=== PATIENT | male | born 1955 | race Hispanic/Latino ===

== ENCOUNTER 2020-08-23 11:42 | Inpatient (IN) | payer MEDICARE ==
[~2020-08-23] VITALS: Ht 165.1 cm; Wt 49.9 kg
[2020-08-23 13:15] LABS: BASOPHILS % (AUTO) 0.3 % (0.0-5.0); EOSINOPHILS % (AUTO) 0.2 % (0.0-8.0); LYMPHOCYTES % (AUTO) 14.7 % (21.0-51.0); MEAN CORPUSCULAR HEMOGLOBIN 29.1 pg (27.0-33.0); MEAN CORPUSCULAR HGB CONC 33.5 g/dL (32.0-36.0); MONOCYTES % (AUTO) 8.9 % (3.0-13.0); NEUTROPHILS % (AUTO) 75.5 % (40.0-77.0); PLATELET COUNT (AUTO) 387 K/uL (130-400); WHITE BLOOD COUNT (AUTO) 12.1 K/uL (4.8-10.8)
[2020-08-23 13:21] LABS: PROTHROMBIN TIME 10.9 SEC (9.6-11.6)
[2020-08-23 13:22] LABS: PARTIAL THROMBOPLASTIN TIME 26.9 SEC (26.3-35.5)
[2020-08-23 13:33] LABS: ALBUMIN 3.2 g/dL (3.5-5.0); BILIRUBIN,TOTAL 0.4 mg/dL (0.2-1.0); TOTAL PROTEIN, SERUM 8.5 g/dL (6.0-8.3)
[2020-08-23] MEDS ORDERED: VANCOMYCIN 1GM+NS 250ML 250 ML IV ONE (14:02)
[2020-08-23] MEDS ORDERED: ZOSYN 3.375GM+NS 50ML 50 ML IV ONE (14:02)
[2020-08-23] MEDS ORDERED: HYDROCODONE/ACETAMINOPHEN 10/325 MG TAB ONE (14:02)
[2020-08-23 15:03] LABS: HEMOGLOBIN A1C 6.3 % (4.0-6.0)
[2020-08-23] MEDS ORDERED: ASPIRIN 81MG TAB.CHEW ONE ×2 (18:28→20:40)
[2020-08-23] MEDS ORDERED: ASPIRIN 81MG TAB.CHEW PO SCH (18:55)
[2020-08-23 21:35] VITALS: BP 143/82
[2020-08-23 23:37] VITALS: BP 128/66
[2020-08-23] MEDS: ZOSYN 3.375GM+NS 50ML 50 ML IV SCH (23:49)
[2020-08-24] MEDS ORDERED: SITA1TAB2 PO (00:53)
[2020-08-24] MEDS ORDERED: AMLO1TAB12 PO (00:53)
[2020-08-24 03:53] VITALS: BP 135/83
[2020-08-24] MEDS: ZOSYN 3.375GM+NS 50ML 50 ML IV SCH ×3 (06:44→21:43)
[2020-08-24 06:55] LABS: BASOPHILS % (AUTO) 0.4 % (0.0-5.0); EOSINOPHILS % (AUTO) 1.1 % (0.0-8.0); HEMATOCRIT 40.4 % (42-54); LYMPHOCYTES % (AUTO) 17.3 % (21.0-51.0); MEAN CORPUSCULAR HEMOGLOBIN 28.4 pg (27.0-33.0); MEAN CORPUSCULAR HGB CONC 32.4 g/dL (32.0-36.0); MEAN CORPUSCULAR VOLUME 87.4 fL (79-99); MONOCYTES % (AUTO) 11.7 % (3.0-13.0); NEUTROPHILS % (AUTO) 69.2 % (40.0-77.0); PLATELET COUNT (AUTO) 368 K/uL (130-400); RED BLOOD CELL COUNT(AUTO) 4.62 MIL/uL (4.50-6.20); RED CELL DISTRIBUTION WIDTH 12.8 % (11.0-15.5); WHITE BLOOD COUNT (AUTO) 9.9 K/uL (4.8-10.8)
[2020-08-24 07:08] LABS: POTASSIUM 3.8 mmol/L (3.5-5.1)
[2020-08-24] MEDS: LOSARTAN 100 MG TABLET PO SCH (07:45)
[2020-08-24] MEDS: AMLODIPINE BESYLATE 5 MG TAB PO SCH (07:45)
[2020-08-24] MEDS: ENOXAPARIN SODIUM 30 MG/0.3 ML SQ SCH (07:45)
[2020-08-24] MEDS: ASPIRIN 81MG TAB.CHEW PO SCH (07:45)
[2020-08-24 08:25] VITALS: BP 141/80
[2020-08-24] MEDS: INSULIN HUMULIN R 100 UNIT/ML 3ML SQ SCH ×3 (11:30→20:45)
[2020-08-24 11:53] VITALS: BP 134/80
[2020-08-24 13:52] LABS: CHOLESTEROL 168 mg/dL (<200); HDL CHOLESTEROL 50 mg/dL (29-71); LDL DIRECT 109 mg/dL (0-99); TRIGLYCERIDES 49 mg/dL (30-200)
[2020-08-24 16:30] VITALS: BP 125/80
[2020-08-24 20:15] VITALS: BP 130/73
[2020-08-24 23:31] VITALS: BP 123/70
[2020-08-25 04:04] VITALS: BP 135/78
[2020-08-25] MEDS: ZOSYN 3.375GM+NS 50ML 50 ML IV SCH ×3 (05:27→21:04)
[2020-08-25 05:29] LABS: APPEARANCE,URINE Clear (CLEAR); BILIRUBIN,URINE Negative (NEGATIVE); COLOR,URINE Yellow (YELLOW); GLUCOSE, URINE (UA) Negative (NEGATIVE); KETONES,URINE Negative (NEGATIVE); LEUKOCYTE ESTERASE ,URINE Negative (NEGATIVE); NITRATE,URINE Negative (NEGATIVE); OCCULT BLOOD,URINE Negative (NEGATIVE); PROTEIN,URINE POS 1+ mg/dL (NEGATIVE)
[2020-08-25 05:53] LABS: BACTERIA,URINE Few /HPF (None Seen); RBC,URINE 0-1 /HPF (0-1); SQUAMOUS EPITHELIAL CELL,UR 0-2 /HPF (0-2); URIC ACID CRYSTALS,URINE Few /LPF (None Seen); WBC,URINE 0-1 /HPF (0-1)
[2020-08-25] MEDS: INSULIN HUMULIN R 100 UNIT/ML 3ML SQ SCH ×4 (06:04→20:54)
[2020-08-25 06:06] LABS: BASOPHILS % (AUTO) 0.4 % (0.0-5.0); EOSINOPHILS % (AUTO) 3.1 % (0.0-8.0); HEMATOCRIT 40.5 % (42-54); MEAN CORPUSCULAR HEMOGLOBIN 28.4 pg (27.0-33.0); MEAN CORPUSCULAR HGB CONC 32.6 g/dL (32.0-36.0); MEAN CORPUSCULAR VOLUME 87.3 fL (79-99); MONOCYTES % (AUTO) 8.8 % (3.0-13.0); NEUTROPHILS % (AUTO) 71.3 % (40.0-77.0); PLATELET COUNT (AUTO) 379 K/uL (130-400); RED BLOOD CELL COUNT(AUTO) 4.64 MIL/uL (4.50-6.20); RED CELL DISTRIBUTION WIDTH 12.7 % (11.0-15.5); WHITE BLOOD COUNT (AUTO) 10.5 K/uL (4.8-10.8)
[2020-08-25 06:18] LABS: CREATININE 0.9 mg/dL (0.5-1.5); POTASSIUM 3.5 mmol/L (3.5-5.1)
[2020-08-25 06:47] VITALS: BP 125/71
[2020-08-25] MEDS: ASPIRIN 81MG TAB.CHEW PO SCH ×2 (07:13→12:40)
[2020-08-25] MEDS: ENOXAPARIN SODIUM 30 MG/0.3 ML SQ SCH ×2 (07:13→12:40)
[2020-08-25] MEDS: LOSARTAN 100 MG TABLET PO SCH (07:17)
[2020-08-25] MEDS: AMLODIPINE BESYLATE 5 MG TAB PO SCH (07:17)
[2020-08-25 10:59] VITALS: BP 137/79
[2020-08-25] MEDS ORDERED: IOHEXOL-350 50ML VIAL IV ONE (12:10)
[2020-08-25] MEDS ORDERED: IOHEXOL 350 MG/ML 100ML INFUS..BTL IV ONE (12:10)
[2020-08-25 15:56] VITALS: BP 132/72
[2020-08-25] MEDS: ATORVASTATIN CALCIUM 20 MG TABLET PO SCH (21:05)
[2020-08-25 21:26] VITALS: BP 132/72
[2020-08-26] VITALS (7 sets, daily range): BP systolic 111–139; BP diastolic 64–80
[2020-08-26 04:06] LABS: BASOPHILS % (AUTO) 0.3 % (0.0-5.0); EOSINOPHILS % (AUTO) 4.8 % (0.0-8.0); HEMATOCRIT 38.7 % (42-54); LYMPHOCYTES % (AUTO) 16.9 % (21.0-51.0); MEAN CORPUSCULAR HEMOGLOBIN 29.2 pg (27.0-33.0); MEAN CORPUSCULAR HGB CONC 33.3 g/dL (32.0-36.0); MEAN CORPUSCULAR VOLUME 87.6 fL (79-99); MONOCYTES % (AUTO) 9.4 % (3.0-13.0); NEUTROPHILS % (AUTO) 68.2 % (40.0-77.0); PLATELET COUNT (AUTO) 353 K/uL (130-400); RED BLOOD CELL COUNT(AUTO) 4.42 MIL/uL (4.50-6.20); RED CELL DISTRIBUTION WIDTH 12.7 % (11.0-15.5); WHITE BLOOD COUNT (AUTO) 10.3 K/uL (4.8-10.8)
[2020-08-26 04:16] LABS: CREATININE 0.9 mg/dL (0.5-1.5); POTASSIUM 3.5 mmol/L (3.5-5.1)
[2020-08-26] MEDS: ZOSYN 3.375GM+NS 50ML 50 ML IV SCH ×2 (05:25→14:50)
[2020-08-26] MEDS: INSULIN HUMULIN R 100 UNIT/ML 3ML SQ SCH ×4 (05:40→21:00)
[2020-08-26] MEDS: LOSARTAN 100 MG TABLET PO SCH (09:16)
[2020-08-26] MEDS: ENOXAPARIN SODIUM 30 MG/0.3 ML SQ SCH (09:16)
[2020-08-26] MEDS: AMLODIPINE BESYLATE 5 MG TAB PO SCH (09:16)
[2020-08-26] MEDS: ASPIRIN 81MG TAB.CHEW PO SCH (09:16)
[2020-08-27] MEDS: ATORVASTATIN CALCIUM 20 MG TABLET PO SCH ×2 (01:16→21:06)
[2020-08-27] MEDS: ZOSYN 3.375GM+NS 50ML 50 ML IV SCH ×4 (01:16→21:07)
[2020-08-27 03:52] VITALS: BP 129/67
[2020-08-27] MEDS: INSULIN HUMULIN R 100 UNIT/ML 3ML SQ SCH ×4 (05:43→21:00)
[2020-08-27 08:22] VITALS: BP 133/76
[2020-08-27] MEDS: ASPIRIN 81MG TAB.CHEW PO SCH (08:42)
[2020-08-27] MEDS: ENOXAPARIN SODIUM 30 MG/0.3 ML SQ SCH (08:42)
[2020-08-27] MEDS: AMLODIPINE BESYLATE 5 MG TAB PO SCH (08:42)
[2020-08-27] MEDS: LOSARTAN 100 MG TABLET PO SCH (08:42)
[2020-08-27 12:18] VITALS: BP 112/68
[2020-08-27 16:46] VITALS: BP 122/76
[2020-08-27 19:00] VITALS: BP_SYST 124; BP_SYST 125; BP_DIAS 55; BP_DIAS 68
[2020-08-28] VITALS: BP 114/65
[2020-08-28 04:00] VITALS: BP 136/82
[2020-08-28 04:50] LABS: HEMATOCRIT 42.2 % (42-54); MEAN CORPUSCULAR HEMOGLOBIN 28.3 pg (27.0-33.0); MEAN CORPUSCULAR HGB CONC 32.5 g/dL (32.0-36.0); MEAN CORPUSCULAR VOLUME 87.2 fL (79-99); RED BLOOD CELL COUNT(AUTO) 4.84 MIL/uL (4.50-6.20); RED CELL DISTRIBUTION WIDTH 12.5 % (11.0-15.5); WHITE BLOOD COUNT (AUTO) 9.4 K/uL (4.8-10.8)
[2020-08-28 05:19] LABS: CREATININE 0.9 mg/dL (0.5-1.5); POTASSIUM 3.7 mmol/L (3.5-5.1)
[2020-08-28] MEDS: ZOSYN 3.375GM+NS 50ML 50 ML IV SCH (05:58)
[2020-08-28] MEDS: INSULIN HUMULIN R 100 UNIT/ML 3ML SQ SCH (05:59)
[2020-08-29] MEDS ORDERED: SODIUM CHLORIDE 0.9% 1000ML 1,000 ML IV SCH (06:00)
== END 2020-08-28 06:30 | disposition left against medical advice (07) | DRG 549 ==
LOC: EDH 11:42 → EDHIP 14:15 → 4CH 21:02
PROVIDERS: ADMIT Internal Medicine; ATTEND Internal Medicine
DX: M00.9 Pyogenic arthritis, unspecified (principal); E11.52 Type 2 diabetes mellitus with diabetic peripheral angiopathy with gangrene; M86.10 Other acute osteomyelitis, unspecified site; I50.42 Chronic combined systolic (congestive) and diastolic (congestive) heart failure; L03.115 Cellulitis of right lower limb; Q21.1 Atrial septal defect; L97.519 Non-pressure chronic ulcer of other part of right foot with unspecified severity; I11.0 Hypertensive heart disease with heart failure; E11.621 Type 2 diabetes mellitus with foot ulcer; E11.69 Type 2 diabetes mellitus with other specified complication; F03.90 Unspecified dementia, unspecified severity, without behavioral disturbance, psychotic disturbance, mood disturbance, and anxiety; Z20.822 Contact with and (suspected) exposure to COVID-19; R53.81 Other malaise; Z89.411 Acquired absence of right great toe; R77.8 Other specified abnormalities of plasma proteins; I25.10 Atherosclerotic heart disease of native coronary artery without angina pectoris; E78.5 Hyperlipidemia, unspecified; I25.2 Old myocardial infarction; I34.0 Nonrheumatic mitral (valve) insufficiency; Z83.3 Family history of diabetes mellitus; D72.829 Elevated white blood cell count, unspecified
CPT/HCPCS: 36415; 71045; 73630; 73718; 75635; 80048; 80053; 80061; 81001; 82948; 83036; 83605; 84145; 84484; 85025; 85027; 85610; 85651; 85730; 86140; 87040; 87426; 93005; 93306; 93356; 93925; 97039; G0378; J1650; J2543; J3370; Q9967; U0003